=== PATIENT | female | born 1950 | race Caucasian/White ===

== ENCOUNTER 2018-08-13 12:06 | Emergency (ER) | payer OTHER ==
[2018-08-13 12:37] VITALS: BMI 27.4
[2018-08-13] MEDS ORDERED: ALBUTEROL SO4 2.5/IPRATROPIUM 0.5 INH SOL 3 ML VIAL.NEB. NEB ONE (12:47)
[2018-08-13] MEDS ORDERED: predniSONE 20 MG TABLET (UD) PO ONE (12:47)
--- NOTE | 2018-08-13 12:51 | PDOC ---
History of Present Illness - General Chief Complaint: Cold Symptoms Stated Complaint: COUGHING/CHEST TIGHNESS Time Seen by Provider: 08/13/18 12:42 History Source: Patient Exam Limitations: No Limitations - History of Present Illness Initial Comments: 08/13/18 12:48 Patient came for evaluation of coughing, mild sore throat pain. And some chest tightness. States suffers from asthma but has not used any her asthma medications. Took ibuprofen yesterday with some good resolved. Has taken no medications today. Timing/Duration: reports: getting worse Severity: reports: mild, moderate Modifying Factors: improves with: coughing. worse with: albuterol nebulizer Associated Symptoms: reports: denies symptoms, fever/chills, nasal congestion, nasal drainage, sore throat, wheezing Past History - Travel Traveled outside of the country in the last 30 days: No Close contact w/someone who was outside of country & ill: No - Past Medical History Allergies/Adverse Reactions: Allergies Allergy/AdvReac Type Severity Reaction Status Date / Time No Known Allergies Allergy Verified 08/13/18 12:38 Home Medications: Ambulatory Orders Albuterol 0.083% Nebulizer Deedee [Ventolin 0.083% Nebulizer Soln -] 1 neb NEB Q4H PRN #30 vial 08/13/18 Azithromycin [Zithromax -] 250 mg PO UTDICT #6 tab 08/13/18 predniSONE [Deltasone -] 20 mg PO BID #8 tablet 08/13/18 - Suicide/Smoking/Psychosocial Hx Smoking History: Never smoked Have you smoked in the past 12 months: No Information on smoking cessation initiated: No Hx Alcohol Use: No Drug/Substance Use Hx: No Review of Systems - Review of Systems Able to Perform ROS?: Yes Is the patient limited Andorran proficient: Yes Constitutional: Yes: Symptoms Reported, See HPI, Malaise. No: Fever HEENTM: Yes: Symptoms Reported, See HPI Respiratory: Yes: See HPI, Cough, Wheezing Cardiac (ROS): No: Symptoms Reported ABD/GI: No: Symptoms Reported Integumentary: Yes: Symptoms Reported All Other Systems: Reviewed and Negative *Physical Exam - Vital Signs Last Vital Signs Temp Pulse Resp BP Pulse Ox 98.7 F 95 H 18 130/64 97 08/13/18 12:35 08/13/18 12:35 08/13/18 12:35 08/13/18 12:35 08/13/18 12:35 - Physical Exam General Appearance: Yes: Nourished, Appropriately Dressed, Apparent Distress, Mild Distress HEENT: positive: SHAHRAM, TMs Normal, Nasal Congestion, Rhinorrhea Neck: positive: Trachea midline, Supple Respiratory/Chest: positive: Wheezing (with coarse insp exp BS ). negative: Chest Tender, Lungs Clear, Normal Breath Sounds Cardiovascular: positive: Regular Rhythm Gastrointestinal/Abdominal: positive: Normal Bowel Sounds, Soft. negative: Tender Musculoskeletal: positive: Normal Inspection Extremity: positive: Normal Inspection, Normal Range of Motion Integumentary: positive: Dry, Warm, Pale Neurologic: positive: reject opener and filler II-XII NML intact, Fully Oriented, Alert, Normal Mood/ Affect, Normal Response, Motor Strength 06/26 Progress Note - Progress Note Progress Note: 1 DuoNeb and 60 mg of prednisone given, breath sounds improved with less wheezing however still continue expiratory grunting therefore will obtain chest x-ray to rule out any pneumo pathology Medical Decision Making - Medical Decision Making 08/13/18 14:01 chest x-ray shows right lower lobe infiltrate, will treat with azithromycin and continue asthma treatment *DC/Admit/Observation/Transfer Diagnosis at time of Disposition: Bronchitis - Discharge Dispostion Disposition: HOME Condition at time of disposition: Stable Decision to Admit order: No - Prescriptions Prescriptions: Albuterol 0.083% Nebulizer Deedee [Ventolin 0.083% Nebulizer Soln -] 1 neb NEB Q4H PRN #30 vial PRN Reason: Cough Azithromycin [Zithromax -] 250 mg PO UTDICT #6 tab predniSONE [Deltasone -] 20 mg PO BID #8 tablet - Referrals Referrals: Jackie Orr MD [Primary Care Provider] - - Patient Instructions Printed Discharge Instructions: DI for Acute Bronchitis Additional Instructions: Rest, drink lots of fluids: Teas, water, soups, Pedialyte Saltwater gargles Steamy showers/seem to face break up mucus Avoid contact with others until fevers and cough resolved Lots of handwashing and good hygiene Continue [id number] medications for symptomatic relief Tylenol or Motrin for fever and pain Continue albuterol nebulizers every 4-6 hours for the next 2 days then as needed for continued cough Prednisone as directed until completed azithromycin as directed Followup with private physician in one to 2 days Return to emergency department / pediatric hospital for worsened symptoms, fevers, dehydration - Post Discharge Activity Forms/Work/School Notes: Back to Work
[2018-08-13] MEDS ORDERED: predniSONE 20 MG TABLET (UD) ONE ×2 (13:10→13:12)
[2018-08-13 14:07] VITALS: BP 126/62; PULSE 82; TEMP 98.1
--- NOTE | 2018-08-15 10:39 | EKG ---
Test Reason : Blood Pressure : / mmHG Vent. Rate : 091 BPM Atrial Rate : 091 BPM P-R Int : 136 ms QRS Dur : 082 ms QT Int : 378 ms P-R-T Axes : 067 061 012 degrees QTc Int : 464 ms NORMAL SINUS RHYTHM NORMAL ECG NO PREVIOUS ECGS AVAILABLE Confirmed by KURT THOMAS MD ([id number]) on 08/15/2018 10:38:55 AM Referred By: Confirmed By:KURT THOMAS MD
== END 2018-08-13 14:05 | disposition home or self-care (01) ==
LOC: JERFT 12:06
PROC: 3E0F7GC Introduction of Other Therapeutic Substance into Respiratory Tract, Via Natural or Artificial Opening (ICD-10-PCS; principal; 2018-08-13)
DX: J40 Bronchitis, not specified as acute or chronic (principal)
CPT/HCPCS: 71046-TC-FY; 93005; 93010; 94640; 99281-25